=== PATIENT | male | born 1955 | race Caucasian/White ===

== ENCOUNTER 2019-05-26 15:11 | Outpatient (CLI) | payer OTHER, SELFPAY ==
--- NOTE | 2019-05-26 14:51 | ECG_ITS ---
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
[2019-05-26 16:22] LABS: Add Urine Microscopic? NO; Appearance Urine Clear (Clear); Bilirubin Urine Negative (Negative); Blood Urine Negative (Negative); Color Urine Yellow (Yellow); Glucose Urine UA Negative (Negative); Ketones Urine Negative (Negative); Leukocyte Esterase Ur Negative LEU/UL (NEGATIVE); Nitrate Urine Negative (Negative); Protein Urine Negative (Negative); Specific Grav Ur 1.023 (1.001-1.035); Urobilinogen Urine Negative mg/dL (<2.0)
[2019-05-26 16:22] LABS: Alanine Aminotransferase 36 U/L (4-50); Albumin Level 4.6 g/dL (3.5-5.1); Alkaline Phosphatase 60 U/L (38-126); Amylase 103 U/L (30-110); Aspartate Amino Transferase 30 U/L (17-59); Bilirubin,Total 0.5 mg/dL (0.2-1.3); Lipase 114 U/L (23-300)
== END 2019-05-26 15:12 | disposition home or self-care (01) ==
PROVIDERS: PCP Family Medicine; Visit Provider Surgery
DX: K80.20 Calculus of gallbladder without cholecystitis without obstruction (principal); E78.5 Hyperlipidemia, unspecified; R94.31 Abnormal electrocardiogram [ECG] [EKG]
CPT/HCPCS: 36415; 80076; 81003; 82150; 83690; 86850; 86900; 86901; 93005

== ENCOUNTER 2019-05-31 01:48 | Day surgery (SDC) | payer OTHER, SELFPAY ==
[2019-05-25 15:04] VITALS: BMI 25.7
[2019-05-31] VITALS (8 sets, daily range): BP systolic 106–139; BP diastolic 67–77; PULSE 57–78; RESP 10–20; TEMP 36.3–36.9; O2SAT 97–100
--- NOTE | 2019-05-31 08:32 | WPDANESEPP ---
Anes - Eval Pre Procedure Procedure: Operation Date: 05/31/19 12:30 Proposed Procedures p Laparoscopic Cholecystectomy, Possible Open - Jose Ramos DO Date/Time: 05/31/19 08:32 Pre Op Diagnosis: Symptomatic Cholelithiasis Patient Data Age: 63 Gender: M Height: 5 ft 10 in Weight: 81.3 kg Allergies Allergy/AdvReac Type Severity Reaction Status Date / Time coconut Allergy Anaphylactic Verified 05/25/19 16:03 Shock Home Medications Medication Instructions Recorded Confirmed Type famotidine 20 mg tablet 20 mg PO DAILY 02/28/19 05/25/19 History omeprazole 40 mg capsule,delayed 40 mg PO DAILY 02/28/19 05/25/19 History release gabapentin 300 mg capsule 300 mg PO TID #90 cap 05/10/19 05/25/19 Rx Vitamin D3 1 tablet PO DAILY 05/25/19 05/25/19 History calcium carbonate [Calcium 600] 600 mg PO DAILY 05/25/19 05/25/19 History magnesium 1 tablet PO DAILY 05/25/19 05/25/19 History atorvastatin 80 mg tablet 80 mg PO DAILY #90 tablet 05/31/19 Rx EC05/26/19 SR 73 Patient hx anesthesia problems: none Family hx anesthesia problems: none PMFSH Past Medical History Medical History Adenomatous colon polyp Arthritis GERD (gastroesophageal reflux disease) History of high cholesterol Hyperlipidemia Neuropathy Skin cancer pre cancer Surgical History Surgical History H/O hernia repair about 12-15 years ago History of surgery on arm cut it off and he stated that it was life saving in 2017 S/P LASIK surgery of both eyes about 8 years ago Social History Social History Smoking status: Never smoker Alcohol intake: current Substance use: never 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
[2019-05-31] MEDS: LACTATED RINGERS 1,000 ML 30 ML IV CONT ×2 (11:15→14:50)
--- NOTE | 2019-05-31 11:27 | WPDANESEFPP ---
Anes - Eval Final PreProcedure Day of Procedure 05/31/19 11:27 Patient weight: overweight Heart: regular rate and rhythm Lungs: clear to auscultation Airway: Mallampati scale class II Neurological: alert and oriented Last oral intake: >/= 8 hours ASA classification: III Emergent: no Anesthetic plan: proceed Anesthesia type and monitoring: general ETT and standard monitoring Other findings: essence neuropathy GERD chol Informed Consent: The patient's anesthetic plan and its attendant risks and benefits were discussed with the patient/family/POA. Questions were solicited and answers provided to the satisfaction of the patient/family/POA.
--- NOTE | 2019-05-31 12:41 | WPDHPUPDATE1 ---
History and Physical Update Update Date/Time: 05/31/19 12:41 History and Physical has been reviewed, including an updated exam of the patient. There are NO changes in the patient's condition. Risks, benefits, and alternatives have been discussed and questions answered. Patient agrees to proceed with procedure.
[2019-05-31] MEDS: ceFAZolin 2 GM/D5W 50 ML 2 GM/50 ML BAG IVPB (13:12)
[2019-05-31] MEDS: IBUPROFEN IV 800 MG/200 ML 800 MG/200 ML BAG 400 MG IVPB (13:21)
[2019-05-31] MEDS: BUPIVACAINE/EPINEPHRINE 0.5% 30 ML VIAL INFILTRATE (13:36)
--- NOTE | 2019-05-31 14:16 | SUR.OPER ---
pre op patient stated left arm has constant numbness and tingling. Able to move arm and open and close hand without difficulty. Arms positioned bilateral prior to induction and patient stated arms to be comfortable.
--- NOTE | 2019-05-31 14:36 | PM.PROC ---
Procedure Note - Detailed Date of procedure: 05/31/19 Pre-op diagnosis: Symptomatic Cholelithiasis Post-op diagnosis: same Procedure performed: Laparoscopic Cholecystectomy Description of procedure: Procedure as well as risks, benefits, and alternatives were discussed with patient. Written consent was obtained and placed in chart prior to procedure. The patient was brought back to surgical suite. Patient was placed in supine position on operating table. Time-out was done to confirm patient and procedure. Patient was then intubated by the anesthesia department. Abdomen was prepped and draped in sterile fashion using chlorhexidine prep. 0.5% bupivacaine with epinephrine was infiltrated at each site of incision. A 5 millimeter incision was made in the right upper quadrant, and a 5 millimeter Optiview trocar was advanced through the abdominal layers under direct visualization. Once inside the abdominal cavity, carbon dioxide was insufflated to create a pneumoperitoneum. The camera was inserted and the abdomen was inspected. No immediate abnormalities were identified. The patient was placed in reverse Trendelenburg position and rotated slightly to the left. An 11 millimeter incision was made in the subxiphoid region, and an 11 millimeter trocar was inserted under direct visualization. There were some adhesions around the previously placed umbilical mesh that were carefully taken down using blunt dissection. A 5 mm incision was then made just superior and to the left of the umbilicus and a 5 mm port was inserted under direct visualization. Another 5 millimeter incision was made in the right upper quadrant, and a 5 millimeter trocar was inserted under direct visualization. The gallbladder was identified and grasped at the fundus and retracted superiorly. It was then grasped at the infundibulum retracted laterally. Careful dissection around the neck of the gallbladder was performed using blunt dissection with a [place] grasper and hook electrocautery. The cystic duct was identified, and a window was created behind it. The cystic artery was also identified and a window was created behind it. The critical view of safety was identified, visualizing the cystic duct running directly into the neck of the gallbladder, and the cystic artery running directly into the wall of the gallbladder. A 5 millimeter clip service station attendant was then used to place 2 clips proximally and 1 clip distally on both the cystic duct and cystic artery. They were then both transected using endoscopic scissors. Once safely away from the to hepatitis, the gallbladder was dissected free from the liver bed using hook electrocautery. Hemostasis was achieved along the way. The gallbladder was removed completely and then removed through the subxiphoid port. The liver bed was then inspected. Hemostasis appeared adequate, and our clips appeared secure. The area was gently irrigated with sterile saline. No other abnormalities were seen. The patient was flattened out in bed, and 1 final inspection was made around the abdominal cavity. The subxiphoid port was removed, and a Gregg Navin cone was used to approximate the fascia with an 0-Vicryl simple interrupted suture. The remaining ports were then removed under direct visualization, the camera was removed, and the pneumoperitoneum was released. The skin of the incisions was approximated using 4-0 Monocryl subcuticular sutures. Exofin glue was applied on top. The patient was then awakened from anesthesia, extubated, and transferred to recovery. Anesthesia: GETA and local (0.5% bupivicaine with epi) Surgeon: Jose Ramos DO Estimated blood loss (mL): 10 Drains: No Packing: No Pathology: yes Complications: No immediate complications Condition: stable (Patient tolerated procedure well, and is currently resting comfortably in recovery.) Disposition: same day Findings: This is a 63-year-old man who presents with right upper quadrant pain for t
== END 2019-05-31 17:02 | disposition home or self-care (01) ==
PROVIDERS: PCP Family Medicine; Visit Provider Surgery
PROC: 0FT44ZZ Resection of Gallbladder, Percutaneous Endoscopic Approach (ICD-10-PCS; CPT 47562; principal; 2019-05-31 12:30)
DX: K80.10 Calculus of gallbladder with chronic cholecystitis without obstruction (principal); E78.5 Hyperlipidemia, unspecified; K21.9 Gastro-esophageal reflux disease without esophagitis; G62.9 Polyneuropathy, unspecified
CPT/HCPCS: 47562; 88304; A9270; J0131; J0690; J1100; J1170; J1741; J2250; J2405; J2704; J2710; J3010; J7030; J7120

== ENCOUNTER 2019-07-06 12:01 | Outpatient (CLI) | payer OTHER, SELFPAY ==
--- NOTE | ~2019-07-06 | CT_ITS ---
EXAMINATION: CT abdomen pelvis wo con DATE: 07/06/2019 13:02 INDICATION: Right lower quadrant abdominal pain. Cholecystectomy in May 2019. TECHNIQUE: Computed tomography (CT) of the abdomen and pelvis was performed without intravenous contr ast. Automated exposure control and iterative reconstruction technique were employed. Exam dose: 856 .16 mGy-cm total exam DLP. COMPARISON: 04/28/2019 right upper quadrant abdominal ultrasound examination FINDINGS: There is an indeterminate 5 mm left lower lobe nodule (series 4 image 11). No pulmonary inf iltrate or consolidation in the included lower lung zones. Normal heart size. No pericardial or pleural effusion. Small sliding hiatal hernia. 2.7 x 2.9 cm central hepatic cyst, left hepatic lobe. No other hepatic space-occupying mass lesion is detected. Status post cholecystectomy. No bile duct or pancreatic duct dilatation. No pancreatic or splenic space-occupying mass lesion is detected. Normal morphology of the adrenal glands. No renal mass lesion is evident on this limited noncontrast examination. No urinary tract calculus or hydroureteronephrosis. There is normal caliber of the abdominal aorta, with moderate atherosclerotic calcification. No intraperitoneal or retroperitoneal or pelvic mass lesion or adenopathy or ascites. There is mild prostate enlargement. The urinary bladder is unremarkable. Normal appendix. There is a prominent amount of fecal material throughout the colon but no evidence o f bowel obstruction. No intraperitoneal free air. Mild fat-containing left inguinal hernia. Status post ventral mesh abdominal wall repair. Included skeletal structures are unremarkable. IMPRESSION: Indeterminate 5 mm left lower lobe nodule; consider follow-up CT thorax examination in o ne year unless earlier six-month follow-up is warranted due to risk factors such as smoking, radon ex posure Status post cholecystectomy Status post ventral abdominal wall repair Small sliding hiatal hernia 2.7 x 2.9 cm hepatic cyst Normal appendix Reviewed, dictated and finalized at [facility]. Reviewed, dictated and finalized at [facility]. IMPRESSION: Indeterminate 5 mm left lower lobe nodule; consider follow-up CT t horax examination in one year unless earlier six-month follow-up is warranted d ue to risk factors such as smoking, radon exposure Status post cholecystectomy Status post ventral abdominal wall repair Small sliding hiatal hernia 2.7 x 2.9 cm hepatic cyst Normal appendix
== END 2019-07-06 12:02 ==
PROVIDERS: PCP Family Medicine; Visit Provider Nurse Practitioner Family
DX: R10.31 Right lower quadrant pain (principal); R91.8 Other nonspecific abnormal finding of lung field; Z90.49 Acquired absence of other specified parts of digestive tract; Z98.890 Other specified postprocedural states; K44.9 Diaphragmatic hernia without obstruction or gangrene; K76.89 Other specified diseases of liver
CPT/HCPCS: 74176

== ENCOUNTER 2020-02-08 06:53 | Outpatient (NON) | payer OTHER, SELFPAY ==
[2020-02-08 21:43] LABS: SARS-CoV-2 RNA PCR Negative
== END 2020-02-08 06:54 ==
LOC: ANHCOVIDDT 06:54
PROVIDERS: PCP Family Medicine; Visit Provider Physician Assistant Medical
DX: R68.89 Other general symptoms and signs (principal); Z20.828 Contact with and (suspected) exposure to other viral communicable diseases
CPT/HCPCS: 87635; C9803; U0003

== ENCOUNTER 2020-04-16 13:09 | Outpatient (CLI) | payer OTHER, SELFPAY ==
--- NOTE | ~2020-04-16 | CT_ITS ---
EXAMINATION: CT chest wo con DATE: 04/16/2020 13:50 INDICATION: Solitary pulmonary nodule TECHNIQUE: Computed tomography (CT) of the chest was performed without intravenous contrast. The dose -length product (DLP) was 101.86 mGy-cm. Automated exposure control and iterative reconstruction tech nique were employed. COMPARISON: 07/06/2019 FINDINGS: There is a stable 5 mm nodule in the left lower lobe on image 73. A 6 mm nodule has develop ed more medially in the left lower lobe on the same image. Additional smaller nodules scattered throu ghout the lungs measure up to 3 mm. There is no pleural effusion or pneumothorax. No pathologically e nlarged thoracic lymph nodes are identified. The heart size is normal. Calcified coronary artery athe rosclerosis is noted. There is a small sliding hiatal hernia. A 3.1 cm cyst is noted in the liver. Th e gallbladder is surgically absent. There is mild thoracic spondylosis. IMPRESSION: 1. Stable 5 mm nodule of the left lower lobe, likely old granulomatous disease. 2. New 6 mm nodule of the left lower lobe, likely infectious or inflammatory. Follow-up low-dose ches t CT in three months is recommended. Reviewed, dictated and finalized at [facility]. 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 Stable 5 mm nodule of the left lower lobe, likely old granulomatous disease. 2. New 6 mm nodule of the left lower lobe, likely infectious or inflammatory. F ollow-up low-dose chest CT in three months is recommended.
== END 2020-04-16 13:10 ==
PROVIDERS: PCP Family Medicine; Visit Provider Family Medicine
DX: R91.1 Solitary pulmonary nodule (principal)
CPT/HCPCS: 71250

== ENCOUNTER → 2021-04-29 01:10 | Outpatient (CLI) | payer SELFPAY ==
[2021-04-29 21:02] LABS: SARS-CoV-2 RNA PCR Positive
== END ==
PROVIDERS: PCP Family Medicine; Visit Provider Physician Assistant Medical
DX: U07.1 COVID-19 (principal); R68.89 Other general symptoms and signs
CPT/HCPCS: C9803; U0003; U0005